=== PATIENT | female | born 1980 | race Two or more races ===

== ENCOUNTER 2020-03-07 18:34 | Outpatient (CLI) | payer OTHER ==
[~2020-03-07] VITALS: Ht 157.5 cm; Wt 79.0 kg
[2020-03-07 20:08] LABS: MICROSCOPIC INDICATED
== END 2020-03-07 21:35 | disposition home or self-care (01) ==
LOC: LDOP 18:34
PROVIDERS: ATTEND Obstetrics & Gynecology
DX: O98.512 Other viral diseases complicating pregnancy, second trimester (principal); U07.1 COVID-19; O46.92 Antepartum hemorrhage, unspecified, second trimester; Z3A.20 20 weeks gestation of pregnancy
CPT/HCPCS: 81001; 87086; 87635; 99211; G0463

== ENCOUNTER 2020-06-08 04:33 | Observation (INO) | payer OTHER ==
[~2020-06-08] VITALS: Ht 157.5 cm; Wt 86.4 kg
[2020-06-08 05:02] VITALS: BP 113/72
[2020-06-08] MEDS ORDERED: TERBUTALINE 1 MG/ML, 1ML ONE (06:19)
[2020-06-08] MEDS ORDERED: TERBUTALINE 1 MG/ML, 1ML SQ ONE (06:30)
[2020-06-08 06:53] LABS: MICROSCOPIC INDICATED
[2020-06-08] MEDS ORDERED: NIFE5POW PO ×3 (10:33→10:38)
== END 2020-06-08 11:03 | disposition home or self-care (01) ==
LOC: LDOP 04:33 → EDIP 06:12 → INTOOBSV 06:12 → LDIP 06:13
PROVIDERS: ADMIT Obstetrics & Gynecology; ATTEND Obstetrics & Gynecology
DX: O46.93 Antepartum hemorrhage, unspecified, third trimester (principal); O26.893 Other specified pregnancy related conditions, third trimester; R10.9 Unspecified abdominal pain; Z3A.33 33 weeks gestation of pregnancy
CPT/HCPCS: 59025; 76815; 81001; 87086; 96372; G0378; J3105

== ENCOUNTER 2020-06-22 08:34 | Outpatient (CLI) | payer OTHER ==
[~2020-06-22 08:34] MED LIST: NIFE5POW PO
[2020-06-22] MEDS ORDERED: BETAMETHASONE 6 MG/ML, 5ML IM ONE (09:25)
[2020-06-22] MEDS ORDERED: TERBUTALINE 1 MG/ML, 1ML ONE (09:25)
[2020-06-22] MEDS ORDERED: PLEASE ENTER HEIGHT AND WEIGHT MC SCH (09:30)
[2020-06-22] MEDS ORDERED: TERBUTALINE 1 MG/ML, 1ML IV ONE (09:30)
[2020-06-22] MEDS ORDERED: LACTATED RINGERS 1,000 ML IVBOLUS ONE (09:30)
[2020-06-22] MEDS ORDERED: BETAMETHASONE 6 MG/ML, 5ML IM SCH (09:30)
[2020-06-22] MEDS ORDERED: LACTATED RINGERS 1,000 ML IV PRN (09:30)
[2020-06-22 12:49] VITALS: BP 109/59
== END 2020-06-22 11:47 | disposition home or self-care (01) ==
LOC: LDOP 08:34
PROVIDERS: ATTEND Obstetrics & Gynecology
DX: O46.93 Antepartum hemorrhage, unspecified, third trimester (principal); Z3A.35 35 weeks gestation of pregnancy
CPT/HCPCS: 59025; 96360; 96361; 96372; J0702; J7120; 96374; 96375

== ENCOUNTER 2020-06-23 08:58 | Outpatient (CLI) | payer OTHER ==
[~2020-06-23] VITALS: Ht 157.5 cm; Wt 85.9 kg
[2020-06-23 09:17] VITALS: BP 105/52
[2020-06-23] MEDS ORDERED: BETAMETHASONE 6 MG/ML, 5ML IM ONE (09:30)
[2020-06-23] MEDS ORDERED: PLEASE ENTER HEIGHT AND WEIGHT MC SCH (09:30)
== END 2020-06-23 09:53 | disposition home or self-care (01) ==
LOC: LDOP 08:58
PROVIDERS: ATTEND Obstetrics & Gynecology
DX: O26.893 Other specified pregnancy related conditions, third trimester (principal); O46.93 Antepartum hemorrhage, unspecified, third trimester; Z3A.35 35 weeks gestation of pregnancy
CPT/HCPCS: 59025; 96372; J0702